=== PATIENT | male | born 1935 | race Caucasian/White ===

== ENCOUNTER 2022-05-04 12:01 | Day surgery (SDC) | payer MEDICARE ==
[~2022-05-04] VITALS: Ht 172.7 cm; Wt 72.6 kg
[2022-05-04] MEDS ORDERED: ASPI81TA26 PO (12:17)
[2022-05-04] MEDS ORDERED: B-12100010 PO (12:17)
[2022-05-04] MEDS ORDERED: FINA1TAB12 PO (12:17)
[2022-05-04 13:20] LABS: BASO % 0.4 % (0.0-1.0); EOS # 0.1 10^3/uL (0.0-0.5); EOS % 1.2 % (0.0-3.0); HEMATOCRIT 50.3 % (42.0-52.0); HEMOGLOBIN 16.2 g/dl (13.5-17.5); LYMPH # 1.7 10^3/uL (1.5-5.0); LYMPH % 21.1 % (24.0-44.0); MEAN CORPUSCULAR HEMOGLOBIN 30.9 pg (27.0-33.0); MEAN CORPUSCULAR HGB CONC 32.2 g/dl (32.0-36.5); MEAN CORPUSCULAR VOLUME 95.8 fl (80.0-96.0); MONO # 0.8 10^3/uL (0.0-0.8); MONO % 9.9 % (2.0-8.0); NEUTROPHILS # 5.5 10^3/uL (1.5-8.5); NEUTROPHILS % 66.9 % (36.0-66.0); PLATELET COUNT, AUTOMATED 222 10^3/uL (150-450); RED BLOOD COUNT 5.25 10^6/uL (4.30-6.10); WHITE BLOOD COUNT 8.2 10^3/uL (4.0-10.0)
[2022-05-04 13:30] LABS: INR 1.07; PROTHROMBIN TIME 14.3 SECONDS (12.7-14.5)
[2022-05-04 13:31] LABS: PARTIAL THROMBOPLASTIN TIME 32.6 SECONDS (25.9-37.0)
[2022-05-04 13:50] LABS: CK-MB VALUE MASS 2.4 NG/ML (<3.6); MB/CK RELATIVE INDEX 2.7 (< OR =4)
[2022-05-04 13:53] LABS: ALBUMIN 3.5 GM/DL (3.2-5.2); BILIRUBIN,DIRECT 0.1 MG/DL (0.0-0.2); BILIRUBIN,TOTAL 0.6 MG/DL (0.2-1.0); CALCIUM LEVEL 9.2 MG/DL (8.8-10.2); CREATININE FOR GFR 1.4 MG/DL (0.70-1.30); GLOMERULAR FILTRATION RATE 50.9 (>35); TOTAL PROTEIN 6.7 GM/DL (6.4-8.2)
[2022-05-04] MEDS ORDERED: NS 1,000 ML IV SCH (14:10)
[2022-05-04 14:17] LABS: MAGNESIUM LEVEL 2.3 MG/DL (1.8-2.4)
[2022-05-04] MEDS ORDERED: FINA5TAB2 PO (14:28)
[2022-05-04] MEDS ORDERED: B-121CAP PO (14:28)
[2022-05-04] MEDS ORDERED: BIOFTAB PO (14:28)
[2022-05-04] MEDS ORDERED: LEVO25TA5 PO (14:28)
[2022-05-04] MEDS ORDERED: HOME MED LIST COMPLETE! XX SCH (14:30)
[2022-05-04 15:33] LABS: RSV AMPLIFICATION NEGATIVE (NEGATIVE)
[2022-05-04] MEDS ORDERED: LR 1,000 ML IV SCH (16:30)
[2022-05-04] MEDS ORDERED: ceFAZolin 2 GM/D5W 50 ML IV BAG (J0690 PER 500MG) As Ordered ONE (20:14)
[2022-05-04] MEDS ORDERED: propofoL 200 MG/20 ML VIAL As Ordered ONE (20:18)
[2022-05-04] MEDS ORDERED: LIDOCAINE 2% INJ 100 MG/5 ML SYRINGE As Ordered ONE (20:18)
[2022-05-04] MEDS ORDERED: fentaNYL 100 MCG/2 ML INJECTION As Ordered ONE (20:19)
[2022-05-04] MEDS ORDERED: LIDOCAINE 1% SDV 30ML VIAL As Ordered ONE (20:41)
[2022-05-04] MEDS ORDERED: MUPIROCIN 2% OINT 22 GM TUBE As Ordered ONE (21:43)
[2022-05-04 22:40] VITALS: BP 134/78
== END 2022-05-04 22:53 | disposition home or self-care (01) ==
LOC: M ED 12:01 → M SDC 15:54
PROVIDERS: ATTEND Internal Medicine Cardiovascular Disease
DX: Z45.010 Encounter for checking and testing of cardiac pacemaker pulse generator [battery] (principal); I97.0 Postcardiotomy syndrome; I49.5 Sick sinus syndrome; I44.2 Atrioventricular block, complete; R42 Dizziness and giddiness; R53.1 Weakness; I10 Essential (primary) hypertension; E78.5 Hyperlipidemia, unspecified; E03.9 Hypothyroidism, unspecified; N40.0 Benign prostatic hyperplasia without lower urinary tract symptoms; Z88.5 Allergy status to narcotic agent; Z79.899 Other long term (current) drug therapy; Z79.82 Long term (current) use of aspirin; Z79.890 Hormone replacement therapy
CPT/HCPCS: 33228; 71045; 80048; 80076; 82550; 82553; 83735; 84484; 85025; 85610; 85730; 86850; 86900; 86901; 87631; 93005; 93041; 94760; 96360; 96361; 99285; C1785; J0690; J3010